=== PATIENT | male | born 1990 | race Hispanic/Latino ===

== ENCOUNTER 2021-08-26 11:42 | Emergency (ER) | payer OTHER ==
[~2021-08-26] VITALS: Ht 172.7 cm; Wt 128.1 kg
[2021-08-26] MEDS ORDERED: LUBRICANT EYE3.5 G1 OD (13:09)
[2021-08-26] MEDS ORDERED: PREDNISONE20 MG PO (13:10)
[2021-08-26] MEDS ORDERED: VALTREX1000 MG PO (13:11)
[2021-08-26] MEDS ORDERED: PREDNISONE 20 MG TAB ONE (13:28)
[2021-08-26] MEDS ORDERED: PREDNISONE 20 MG TAB PO ONE (13:30)
== END 2021-08-26 13:24 | disposition home or self-care (01) ==
LOC: FSED 12:13
DX: G51.0 Bell's palsy (principal); R03.0 Elevated blood-pressure reading, without diagnosis of hypertension; E66.01 Morbid (severe) obesity due to excess calories; F17.210 Nicotine dependence, cigarettes, uncomplicated
CPT/HCPCS: 99283; J7512

== ENCOUNTER 2024-11-20 20:12 | Emergency (ER) | payer OTHER ==
[~2024-11-20] VITALS: Ht 172.7 cm; Wt 136.5 kg
[~2024-11-20 20:12] MED LIST: LUBRICANT EYE3.5 G1 OD; PREDNISONE20 MG PO; VALTREX1000 MG PO
[2024-11-20 20:15] VITALS: TEMP 98.3
[2024-11-20] MEDS: FAMOTIDINE 20 MG/2 ML VIAL IV STA (21:50)
[2024-11-20] MEDS: HYDRALAZINE HCL 20 MG/ML VIAL IV ONE (21:50)
[2024-11-20 23:23] VITALS: PULSE 68; RESP 18
[2024-11-20] MEDS ORDERED: OLMESARTAN-HCT1 EACH PO (23:35)
[2024-11-20] MEDS ORDERED: PEPCID20 MG PO (23:36)
[2024-11-20 23:46] VITALS: BP 165/92; PULSE 68; RESP 18; TEMP 98.6; O2SAT 97
== END 2024-11-20 23:46 | disposition home or self-care (01) ==
LOC: FSED 20:16
DX: R10.13 Epigastric pain (principal); R07.89 Other chest pain; I10 Essential (primary) hypertension; F17.290 Nicotine dependence, other tobacco product, uncomplicated
CPT/HCPCS: 71046; 80053; 80307; 81003; 84484; 85025; 93005; 96374; 96375; 99284; J0360